=== PATIENT | male | born 1970 | race Caucasian/White ===

== ENCOUNTER 2023-04-11 19:56 | Outpatient (OUT) | payer BC, SELFPAY | END 2023-04-11 19:57 | disposition home or self-care (01) | LOC: SLEEP 19:56 | PROVIDERS: PCP Nurse Practitioner Family; Visit Provider Nurse Practitioner Family | DX: G47.33 Obstructive sleep apnea (adult) (pediatric) (principal) | CPT/HCPCS: 95811 ==

== ENCOUNTER 2023-07-06 11:12 | Outpatient (OUT) | payer BC, SELFPAY | END 2023-07-06 11:13 | disposition home or self-care (01) | LOC: SLEEP 11:13 | PROVIDERS: PCP Nurse Practitioner Family; Visit Provider Nurse Practitioner Family | DX: G47.33 Obstructive sleep apnea (adult) (pediatric) (principal) | CPT/HCPCS: 95806 ==